=== PATIENT | female | born 1980 | race Caucasian/White ===

== ENCOUNTER → 2019-11-15 13:10 | Outpatient (BNVA) | payer SELFPAY | PROVIDERS: Family Provider Family Medicine; Referring Provider Electrodiagnostic Medicine; Visit Provider Internal Medicine | DX: E03.8 Other specified hypothyroidism (principal); E06.3 Autoimmune thyroiditis; F41.9 Anxiety disorder, unspecified; F32.9 Major depressive disorder, single episode, unspecified | CPT/HCPCS: 99203 ==

== ENCOUNTER 2019-11-15 16:24 | Outpatient (CLI) | payer SELFPAY ==
[2019-11-15 17:24] LABS: Free T4 Free Thyroxine 1.35 ng/dL (0.82-1.77)
== END 2019-11-15 16:25 | disposition home or self-care (01) ==
LOC: LAB 16:27
PROVIDERS: Visit Provider Internal Medicine
DX: E03.8 Other specified hypothyroidism (principal); E06.3 Autoimmune thyroiditis; F32.9 Major depressive disorder, single episode, unspecified; F41.9 Anxiety disorder, unspecified
CPT/HCPCS: 83516; 84439; 84443

== ENCOUNTER 2020-01-03 13:31 | Outpatient (CLI) | payer SELFPAY ==
[2020-01-03 14:30] LABS: Free T4 Free Thyroxine 1.69 ng/dL (0.82-1.77); Thyroid Stimulating Hormone 0.99 uIU/mL (0.27-4.20)
== END 2020-01-03 13:32 | disposition home or self-care (01) ==
LOC: LAB 13:32
PROVIDERS: Visit Provider Internal Medicine
DX: E03.9 Hypothyroidism, unspecified (principal)
CPT/HCPCS: 84439; 84443

== ENCOUNTER → 2020-01-16 12:49 | Outpatient (BNVA) | payer SELFPAY | PROVIDERS: Visit Provider Internal Medicine | DX: E03.9 Hypothyroidism, unspecified (principal); E06.3 Autoimmune thyroiditis; E66.9 Obesity, unspecified; F15.20 Other stimulant dependence, uncomplicated | CPT/HCPCS: 99214 ==

== ENCOUNTER → 2020-04-11 08:49 | Outpatient (BNVA) | payer SELFPAY | PROVIDERS: Visit Provider Internal Medicine | DX: E03.8 Other specified hypothyroidism (principal); E06.3 Autoimmune thyroiditis; E66.9 Obesity, unspecified; F15.20 Other stimulant dependence, uncomplicated | CPT/HCPCS: 99214 ==

== ENCOUNTER → 2022-07-17 07:08 | Outpatient (BNVA) | payer SELFPAY | PROVIDERS: PCP Family Medicine; Visit Provider Family Medicine | DX: E03.8 Other specified hypothyroidism (principal); E06.3 Autoimmune thyroiditis; L56.8 Other specified acute skin changes due to ultraviolet radiation | CPT/HCPCS: 82306; 84439; 84443; 84481; 86038 ==

== ENCOUNTER → 2023-07-08 09:14 | Outpatient (BNVA) | payer SELFPAY | PROVIDERS: PCP Family Medicine; Visit Provider Family Medicine | DX: Z00.00 Encounter for general adult medical examination without abnormal findings (principal); E55.9 Vitamin D deficiency, unspecified; E03.8 Other specified hypothyroidism; E06.3 Autoimmune thyroiditis; F41.9 Anxiety disorder, unspecified | CPT/HCPCS: 80053; 80061; 82306; 84443 ==

== ENCOUNTER → 2023-08-31 09:08 | Outpatient (BNVA) | payer SELFPAY | PROVIDERS: PCP Family Medicine; Visit Provider Family Medicine | DX: E03.8 Other specified hypothyroidism (principal); E06.3 Autoimmune thyroiditis | CPT/HCPCS: 84443 ==

== ENCOUNTER → 2024-05-30 10:10 | Outpatient (BNVA) | payer SELFPAY | PROVIDERS: PCP Family Medicine; Visit Provider Family Medicine | DX: E55.9 Vitamin D deficiency, unspecified (principal); E03.8 Other specified hypothyroidism; E06.3 Autoimmune thyroiditis | CPT/HCPCS: 82306; 84443 ==